=== PATIENT | female | born 1960 | race Caucasian/White ===

== ENCOUNTER → 2016-10-03 16:35 | Outpatient (CLI) | payer MEDICAID ==
[2014-11-08 01:52] VITALS: BMI 32.9
[~2016-10-03 16:35] MED LIST: AMITRIPTYLINE100 MG PO; BUMEX 1 MG TAB1 MG PO; DIFLUCAN100 MG PO; HYCODAN PO; HYDROCODONE-APA1 TAB PO; IPRAT-ALBUT 0.5-3 ML INH; KLONOPIN1 MG PO; LEVAQUIN500 MG PO; LEVAQUIN750 MG PO; MEDROL DOSE PACK4 MG PO; MUCINEX600 MG PO; PERFOROMIS20 MCG/21 INH; PULMICORT0.5 MG/21 UPD; STERAPRED DS 1210 MG PO; TESSALON PERLE100 MG PO; VIVELLE-DOT 00.05 MG TRANSDERM; ZITHROMAX 500M500 MG PO; ZOVIRAX800 MG PO
== END | disposition home or self-care (01) ==
LOC: D.CT 16:35
DX: R10.9 Unspecified abdominal pain (principal)